=== PATIENT | male | born 1945 | race Caucasian/White ===

== ENCOUNTER → 2016-06-04 | Outpatient (REF) | payer MEDICARE | LOC: M SFHCLACO 08:56 | PROVIDERS: ATTEND Family Medicine | DX: I10 Essential (primary) hypertension (principal); Z13.220 Encounter for screening for lipoid disorders ==

== ENCOUNTER → 2016-07-19 | Outpatient (REF) | payer MEDICARE | LOC: M LABDRAW1 11:28 | PROVIDERS: ATTEND Family Medicine | DX: Z13.1 Encounter for screening for diabetes mellitus (principal); Z79.899 Other long term (current) drug therapy ==

== ENCOUNTER → 2016-07-29 | Outpatient (CLI) | payer MEDICARE ==
[~2016-07-29] VITALS: Ht 180.3 cm; Wt 112.5 kg
[~2016-07-29] MED LIST: ASPI1TAB PO; ATEN100T PO; BENA20TA7 PO; BENAZEPRIL-HCTZ PO; LIDOCAINE 2% INJ 100 MG/5 ML SDV (FOR ANES.) As Ordered ONE; NS 1,000 ML IV SCH; PROPOFOL 500 MG/50 ML VIAL As Ordered ONE; VITA-130 PO; VITMTA PO
--- NOTE | 2016-07-29 08:51 | ROOR ---
Patient Name: Fredy Fisher Procedure Date: 07/29/2016 8:27 AM Date of : 1945 Age: 71 Room: [facility] Gender: Male Note Status: Finalized Procedure: Colonoscopy Indications: Screening for colorectal malignant neoplasm Providers: Rex RICE MD Referring MD: AN GARCIA MD Requesting Provider: Medicines: Monitored Anesthesia Care Complications: No immediate complications. Procedure: Pre-Anesthesia Assessment: - The heart rate, respiratory rate, oxygen saturations, blood pressure, adequacy of pulmonary ventilation, and response to care were monitored throughout the procedure. The Colonoscope was introduced through the anus and advanced to the cecum, identified by appendiceal orifice and ileocecal valve. The colonoscopy was performed without difficulty. The patient tolerated the procedure well. The quality of the bowel preparation was good. Findings: The perianal and digital rectal examinations were normal. Two semi-sessile polyps were found in the ascending colon and ileocecal valve. The polyps were 4 to 6 mm in size. These polyps were removed with a cold snare. Resection and retrieval were complete. A 4 mm polyp was found in the sigmoid colon. The polyp was sessile. The polyp was removed with a cold snare. Resection and retrieval were complete. A few small-mouthed diverticula were found in the sigmoid colon. The exam was otherwise without abnormality on direct and retroflexion views. Impression: - Two 4 to 6 mm polyps in the ascending colon and at the ileocecal valve, removed with a cold snare. Resected and retrieved. - One 4 mm polyp in the sigmoid colon, removed with a cold snare. Resected and retrieved. - Mild diverticulosis in the sigmoid colon. - Small internal hemorrhoids. - The examination was otherwise normal on direct and retroflexion views. Recommendation: - Repeat colonoscopy in 3 years for surveillance. Rex Rice MD Rex RICE MD 07/29/2016 8:50:52 AM This report has been signed electronically. Number of Addenda: 0 Note Initiated On: 07/29/2016 8:27 AM Estimated Blood Loss: Estimated blood loss: none.
[2016-07-29 09:12] VITALS: BP 124/90
== END | disposition home or self-care (01) ==
LOC: M OPP 07:07
PROVIDERS: ATTEND Internal Medicine Gastroenterology
DX: Z12.11 Encounter for screening for malignant neoplasm of colon (principal); D12.2 Benign neoplasm of ascending colon; D12.5 Benign neoplasm of sigmoid colon; D12.0 Benign neoplasm of cecum; K57.30 Diverticulosis of large intestine without perforation or abscess without bleeding; K64.8 Other hemorrhoids; Z86.010 Personal history of colon polyps; I10 Essential (primary) hypertension; G47.30 Sleep apnea, unspecified; R06.83 Snoring; Z98.1 Arthrodesis status; Z79.82 Long term (current) use of aspirin; Z79.899 Other long term (current) drug therapy; Z80.0 Family history of malignant neoplasm of digestive organs; Z80.8 Family history of malignant neoplasm of other organs or systems

== ENCOUNTER → 2017-06-10 | Outpatient (REF) | payer MEDICARE ==
[2017-06-10 15:10] LABS: ALBUMIN 3.8 GM/DL (3.2-5.2); ALBUMIN/GLOBULIN RATIO 1.15 (1.00-1.93); ALKALINE PHOSPHATASE 65 U/L (45-117); ALT/SGPT 42 U/L (12-78); ANION GAP 6 MEQ/L (8-16); AST/SGOT 25 U/L (7-37); BILIRUBIN,TOTAL 0.3 MG/DL (0.2-1.0); BLOOD UREA NITROGEN 14 MG/DL (7-18); CALCIUM LEVEL 8.9 MG/DL (8.8-10.2); CARBON DIOXIDE LEVEL 27 MEQ/L (21-32); CHLORIDE LEVEL 111 MEQ/L (98-107); CHOLESTEROL LEVEL 92 MG/DL (<200); CHOLESTEROL RISK RATIO 2.628 (<5); CREATININE FOR GFR 0.87 MG/DL (0.70-1.30); GLOMERULAR FILTRATION RATE > 60.0 (>42); GLUCOSE, FASTING 112 MG/DL (70-100); HDL CHOLESTEROL 35 MG/DL (>40); LDL CHOLESTEROL 44.4 MG/DL (<100); NON-HDL-C 57 MG/DL; POTASSIUM SERUM 4.4 MEQ/L (3.5-5.1); SODIUM LEVEL 144 MEQ/L (136-145); TOTAL PROTEIN 7.1 GM/DL (6.4-8.2); TRIGLYCERIDES LEVEL 63 MG/DL (<150)
== END ==
LOC: M SFHCLACO 08:28
DX: E78.5 Hyperlipidemia, unspecified (principal)
CPT/HCPCS: 80053

== ENCOUNTER → 2019-01-07 | Outpatient (REF) | payer MEDICARE ==
[~2019-01-07] MED LIST changes: -ASPI1TAB PO; +ASPI81TA26 PO; -LIDOCAINE 2% INJ 100 MG/5 ML SDV (FOR ANES.) As Ordered ONE; -NS 1,000 ML IV SCH; -PROPOFOL 500 MG/50 ML VIAL As Ordered ONE; -VITA-130 PO; +VITA500T PO
[2019-01-07 16:24] LABS: BLOOD UREA NITROGEN 14 MG/DL (7-18); CALCIUM LEVEL 9.6 MG/DL (8.8-10.2); CARBON DIOXIDE LEVEL 29 MEQ/L (21-32); CHLORIDE LEVEL 104 MEQ/L (98-107); CREATININE FOR GFR 0.96 MG/DL (0.70-1.30); GLOMERULAR FILTRATION RATE > 60.0 (>42); GLUCOSE, FASTING 109 MG/DL (70-100); POTASSIUM SERUM 4.3 MEQ/L (3.5-5.1); SODIUM LEVEL 140 MEQ/L (136-145)
== END ==
LOC: M SMT 15:27
PROVIDERS: ATTEND Obstetrics & Gynecology
DX: I10 Essential (primary) hypertension (principal)

== ENCOUNTER → 2019-03-26 | Outpatient (RCR) | payer MEDICARE ==
--- NOTE | 2019-03-18 15:11 | CARECAPL ---
Assessment Account #s: Initial Assessment General Diagnoses: Stent Date of event: Mar 02, 2019 Physician: Rex Sarabia Allergies: Coded Allergies: MS - No Known Drug Allergy (Verified Allergy, Unknown, 07/26/16) Date Entered Program: Mar 18, 2019 Risk strat for cardiac event: Low Exercise Date: Mar 18, 2019 Assessment: Initial Assessment Stages of change: Preperation Exercise Prescription Plan TO EDUCATE AND BUILD ENDURANCE THROUGH MONITORED EXERCISE Modalities initiated: Treadmill (WILL ADD), Cardio-Strider (WILL ADD), Nustep (WILL ADD), Arm Aerometer (WILL ADD), Dumbells (WILL ADD), Recumbent Bike (WILL ADD) Frequency: 3 Duration (Minutes) 30 - 60 minutes total exercise a day. 15 - 20 work intervals in minutes. PRN rest intervals in minutes. Functional Capacity Goal Sustained Metabolic Equivalent of a task (MET) goal of 2.5-3.0 for 15-20 minutes. Intensity: 3-Moderate Progression (METS) Increase by: 0.5 METS every: 5 sessions TOLERATED Angina with ex: No Target Heart Rate REST + 35-40 PER BETA UNRULY THERAPY Resistance Training: Yes Weight (pounds): 2 Reps: 8-12 Hypertension: Yes Hypertension controlled with: Medication (BENAZEPRIL/HCTZ, METOPROLOL) Resting 138/80 Medications Scheduled Ascorbic Acid (Vitamin C), 500 MG PO DAILY, (Reported) Aspirin (Aspirin EC), 81 MG PO DAILY, (Reported) Atorvastatin Calcium (Atorvastatin Calcium), 40 MG PO QHS, (Reported) Benazepril/Hydrochlorothiazide (Benazepril-Hctz 20-12.5 mg Tab), 1 TAB PO QHS, (Reported) Clopidogrel Bisulfate (Plavix), 75 MG PO DAILY, (Reported) Metoprolol Tartrate (Metoprolol Tartrate), 25 MG PO BID, (Reported) Multivitamins (Thera M Plus Tablet), 1 TAB PO DAILY, (Reported) Nitroglycerin (Nitroglycerin), 0.4 MG SL ASDIRECTED, (Reported) Discontinued Medications Atenolol (Atenolol), 100 MG PO DAILY, (Reported) Discontinued Reason: Pt states not taking Benazepril/Hydrochlorothiazide (Benazepril-Hctz 20-25 mg Tab), 1 TAB PO DAILY, (Reported) Discontinued Reason: Pt states not taking Med Change: No Intervention Resistance Training: Yes Education: Self pulse (INSTRUCTED PATIENT TO TAKE OWN PULSE RATE), S/S to report (PATIENT VERBALIZES UNDERSTANDING OF IMPORTANCE TO REPORT CHEST PAIN/SOB OR OTHER PAIN), Low NA diet (PATIENT VERBALIZES HE IS TO AVOID SALT DUE TO HIS CARDIAC DISEASE), RPE Scale (DISCUSSED EFFORT SCALE FOR EACH PIECE OF EQUIPMENT, PATIENT VERBALIZES UNDERSTANDING), warm up/cool down (DISCUSSED IMPORTANCE OF WARM UP AND COOL DOWN PRIOR TO AND FOLLOWING EXERCISE, PATIENT VERBALIZES UNDERSTANDING) Education Goals Met: No Target Goals Individual exercise Rx (1) BP 140/90 or 130/80 if DM or CKD (1) Aerobic active 30+min 5 days per week (1) Nutrition Date: Mar 18, 2019 Assessment: Initial Assessment Stages of change: Preperation Lipid- med/supplement ATORVASTATIN Med Change: No Diabetes Diabetes: No Monitor Blood Sugar at home: No Medication Change: No Weight Management Weight (lbs): 245 Height (inches): 75 Waist Circumference (Inches): 43 BMI: 30.6 Special Diet: low salt, mediteranean diet, low-fat Vitamin/Supplements: Multivitamin, Vitamin C Diet Access Tool: Rate your plate Score: 54 Current Weight (pounds): 245 Intervention Kettle Cleaner Consult: No Nurse/patient discussion: Yes Dietary Goals TO CHOOSE HEART HEALTHY DIET/SMALLER PORTIONS Diet Class: Yes (WILL SEE NEW CAR SALES MANAGER WHILE IN PROGRAM) Referral to Diabetes education: No Referral to lipid clinic: No Referral to weight mangement p: No Education Eating Healthy Education Goals Met: No Target goal LDL-C<100 if triglycerides are >200 Non-HDL-C should be <130 (1) LDL-C<70 for high risk patients (4) HbA1c<7% (1) BMI<25 Waist cir<40in M/<35in F (1) Education Date: Mar 18, 2019 Assessment: Initial Assessment Learning Barriers: ready Knowledge Test Score: 10 Stages of change: Preperation Family Support: Yes Tobacco use: No Quit: never smoked Tobacco Use Smokeless tobacco: No Intervention Referral to smoking cessation: No Individual education and couns: No Tobacco Adjunct: No Education class schedule given: No Attended education classes: No Education Goals Met: No Target Goals Complete cessation of tobacco use (1). Psychosocial Date: Mar 18, 2019 Assessment: Initial Assessment Psych Test (Initial/Discharge) Tool Used: Other (PHQ-9) Score: 0 Stages of change: Preperation Intervention Physician Consult: No Physician Referral: No Med Change: No Stress Management Class: No Uses Stress Management Skills: Yes Education Education: Coping Techniques (DISCUSSED COPING MEASURES SUCH TAKING TIME FOR SELF, EXERCISE,TALKING WITH FRIENDS AND FAMILY), S/S depression (REVIEWED S/S OF DEPRESSION SUCH WITHDRAWAL, LACK OF INTEREST, LACK OF APPETITE, SECLUSION), Relaxation Techniques (DISCUSSED WAYS TO RELAX SUCH READING,HOBBIES,LISTENING TO MUSIC, EXERCISING) Education Goals Met: No Target Goal Assess presence or absence of depression using a valid screening tool (1). Maximize coping skills (2). Positive support system (2). Patient/Program Goal Preventative Medication: Yes Aspirin, Yes Clopidogrel, Yes Beta blockade, Yes Statin/OTR lipid Lowering Fall Risk Assess: Yes (NOT A FALL RISK) Provider Assessment Session Number: 1 Provider Assessment: Proceed with rehab Blane Thomas RN Mar 18, 2019 15:11
[~2019-03-26] MED LIST changes: +ATOR40TA75 PO; +BENA20TA6 PO; +METO25TA4 PO; +NITR0.4S14 SL; +PLAV1TAB2 PO
== END ==
LOC: M CR 03-18 13:01
PROVIDERS: ATTEND Internal Medicine Cardiovascular Disease
DX: Z98.61 Coronary angioplasty status (principal)

== ENCOUNTER 2019-04-07 14:20 | Outpatient (RCR) | payer MEDICARE ==
[~2019-04-07] VITALS: Ht 190.5 cm; Wt 109.6 kg
[2019-04-07 13:05] VITALS: BP 142/84
[2019-04-07 13:42] VITALS: BP 180/84
[2019-04-07 14:33] VITALS: BP 142/86
--- NOTE | 2019-04-14 13:05 | CARECAPL ---
Assessment Account #s: Discharge General Diagnoses: Stent Date of event: Mar 02, 2019 Physician: Rex Sarabia Allergies: Coded Allergies: MS - No Known Drug Allergy (Verified Allergy, Unknown, 07/26/16) Date Entered Program: Mar 18, 2019 Risk strat for cardiac event: Low Exercise Date: Apr 14, 2019 Assessment: Followup/Discharge Stages of change: Preperation Exercise Prescription Plan TO EDUCATE AND BUILD ENDURANCE THROUGH MONITORED EXERCISE PROGRAM Modalities initiated: Treadmill (METS=3.5/RPE=3), Nustep (METS=5.0/RPE=3), Arm Aerometer (METS=2.2/RPE=3), Dumbells (6#/RPE=3), Recumbent Bike (METS=11.7/RPE=3) Frequency: 3 Duration (Minutes) 30 - 60 minutes total exercise a day. 15 - 20 work intervals in minutes. PRN rest intervals in minutes. Functional Capacity Goal Sustained Metabolic Equivalent of a task (MET) goal of 5.5-6.0 for 15-20 minutes. Intensity: 3-Moderate Progression (METS) Increase by: METS every: sessions Angina with ex: No Target Heart Rate +35-40 BASED ON BETA UNRULY THERAPY Resistance Training: Yes Weight (pounds): 6 Reps: 12-15 Hypertension controlled with: Medication Resting 142/84 Peak Exercise BP 180/84 Medications Scheduled Ascorbic Acid (Vitamin C), 500 MG PO DAILY, (Reported) Aspirin (Aspirin EC), 81 MG PO DAILY, (Reported) Atorvastatin Calcium (Atorvastatin Calcium), 40 MG PO QHS, (Reported) Benazepril/Hydrochlorothiazide (Benazepril-Hctz 20-12.5 mg Tab), 1 TAB PO QHS, (Reported) Clopidogrel Bisulfate (Plavix), 75 MG PO DAILY, (Reported) Metoprolol Tartrate (Metoprolol Tartrate), 25 MG PO BID, (Reported) Multivitamins (Thera M Plus Tablet), 1 TAB PO DAILY, (Reported) Nitroglycerin (Nitroglycerin), 0.4 MG SL ASDIRECTED, (Reported) Current BP 142/86 Med Change: No Intervention Resistance Training: Yes Education: Self pulse (INSTRUCTED PATIENT ON TAKING HIS OWN PULSE), Ex safety (REVIEWED SAFE EXERCISING SUCH WARM UP/COOL DOWN, STAYING HYDRATED), S/S to report (PATIENT VERBALIZES UNDERSTANDING TO REPORT CHEST PAIN/PRESSURE,SOB,N/V OR ANY OTHER PAIN DURING EXERCISE SESSION), RPE Scale (PATIENT DEMONSTRATES INDEPENDENTLY FOLLOWING EACH PIECE OF EQUIPMENT ), Equipment orientation (ORIENTED TO EACH PIECE OF EQUIPMENT USED), warm up/cool down (PATIENT DEMONSTRATES WARM UP AND COOL DOWN WITH EACH EXERCISE SESSION), Physical Active (PATIENT VERBALIZES UNDERSTANDING THAT HE SHOULD CONTINUE EXERCISE PROGRAM AT HOME ONCE HE HAS COMPLETED CARDIAC REHAB) Education Goals Met: No Target Goals Individual exercise Rx (1) BP 140/90 or 130/80 if DM or CKD (1) Aerobic active 30+min 5 days per week (1) Nutrition Date: Apr 14, 2019 Assessment: Followup/Discharge Lipid- med/supplement ATORVASTATIN Med Change: No Diabetes Diabetes: No Monitor Blood Sugar at home: No Medication Change: No Weight Management Weight (lbs): 245 Special Diet: low salt, mediteranean diet, low-fat Vitamin/Supplements: Multivitamin, Vitamin C Current Weight (pounds): 245 Intervention Water Tender Consult: No Nurse/patient discussion: Yes Dietary Goals TO MAKE HEART HEALTHY CHOICES/SMALLER PORTIONS Diet Class: No (DID NOT SEE DISEASE AND INSECT CONTROL BOSS WHILE IN PROGRAM) Referral to Diabetes education: No Referral to lipid clinic: No Referral to weight mangement p: No Education Eating Healthy Education Goals Met: No Target goal LDL-C<100 if triglycerides are >200 Non-HDL-C should be <130 (1) LDL-C<70 for high risk patients (4) HbA1c<7% (1) BMI<25 Waist cir<40in M/<35in F (1) Education Date: Apr 14, 2019 Assessment: Followup/Discharge Learning Barriers: ready Stages of change: Preperation Family Support: Yes Tobacco use: No Quit: never smoked Tobacco Use Smokeless tobacco: No Intervention Referral to smoking cessation: No Individual education and couns: No Tobacco Adjunct: No Education class schedule given: No Attended education classes: No Education: CAD (PATIENT STATES THAT HAVING ELEVATED CHOLERSTEROL MAY CLOG HIS ARTERIES CAUSING CAD), Risk factors (PATIENT STATES THAT BEING OVER WEIGHT, DIABETES AND HIGH CHOLESTEROL ARE RISK FACTORS FOR CAD) Education Goals Met: No Target Goals Complete cessation of tobacco use (1). Psychosocial Date: Apr 14, 2019 Assessment: Followup/Discharge Stages of change: Preperation Intervention Physician Consult: No Physician Referral: No Med Change: No Stress Management Class: No Uses Stress Management Skills: Yes Education Education: Coping Techniques (SEE EDUCATION ON PRIOR ITP'S) Education Goals Met: No (PATIENT AND ARE TRAVELING TO [place] TO VISIT FAMILY FOR THE REST OF THE WINTER, GAVE PATIENT INFORMATION REGARDING OUR CARDIAC REHAB MEET PROGRAM IF HE IS INTERESTED WHEN HE RETURNS FROM [place]) Target Goal Assess presence or absence of depression using a valid screening tool (1). Maximize coping skills (2). Positive support system (2). Patient/Program Goal Preventative Medication: Yes Aspirin, Yes Clopidogrel, Yes Beta blockade, Yes Statin/OTR lipid Lowering Fall Risk Assess: Yes (PATIENT IS NOT A FALL RISK) Provider Assessment Session Number: 6 Blane Thomas RN Apr 14, 2019 13:05
== END 2019-04-24 ==
LOC: M CR 14:20
PROVIDERS: ATTEND Internal Medicine Cardiovascular Disease
DX: Z98.61 Coronary angioplasty status (principal)

== ENCOUNTER → 2019-07-26 | Outpatient (CLI) | payer MEDICARE ==
[~2019-07-26] MED LIST changes: +VITA-243 PO; -VITA500T PO
--- NOTE | 2019-07-26 14:17 | REPPI ---
RIGHT KNEE FIVE VIEWS: Five views of the right knee performed. No acute fracture or dislocation is seen. There is mild medial joint space narrowing and subchondral sclerosis. There is mild lateral patellofemoral joint space narrowing and subchondral sclerosis. There is mild spurring of the medial and lateral patellar facets. There is probably a small joint effusion. IMPRESSION: Mild degenerative changes. Small joint effusion. Electronically Signed by Fredy Cam MD 07/27/2019 01:07 P
== END ==
LOC: M PLAIMG 12:33
PROVIDERS: ATTEND Family Medicine
DX: M17.11 Unilateral primary osteoarthritis, right knee (principal); M25.561 Pain in right knee

== ENCOUNTER → 2019-09-06 | Outpatient (CLI) | payer MEDICARE ==
[2019-09-06 14:28] LABS: HEMOGLOBIN 14.5 g/dl (13.5-17.5); MEAN CORPUSCULAR HEMOGLOBIN 31.9 pg (27.0-33.0); MEAN CORPUSCULAR HGB CONC 33.7 g/dl (32.0-36.5); MEAN CORPUSCULAR VOLUME 94.7 fl (80.0-96.0); PLATELET COUNT, AUTOMATED 197 10^3/uL (150-450); RED BLOOD COUNT 4.54 10^6/uL (4.30-6.10); WHITE BLOOD COUNT 5.4 10^3/uL (4.0-10.0)
[2019-09-06 14:34] LABS: CHOLESTEROL RISK RATIO 1.846 (<5)
[2019-09-06 15:10] LABS: ALBUMIN 3.9 GM/DL (3.2-5.2); ALT/SGPT 41 U/L (12-78); BILIRUBIN,TOTAL 0.7 MG/DL (0.2-1.0); BLOOD UREA NITROGEN 10 MG/DL (7-18); CALCIUM LEVEL 9.5 MG/DL (8.8-10.2); CARBON DIOXIDE LEVEL 26 MEQ/L (21-32); CHLORIDE LEVEL 107 MEQ/L (98-107); CHOLESTEROL LEVEL 72 MG/DL (<200); CHOLESTEROL RISK RATIO 1.894 (<5); GLOMERULAR FILTRATION RATE > 60.0 (>42); GLUCOSE, FASTING 102 MG/DL (70-100); HDL CHOLESTEROL 38 MG/DL (>40); LDL CHOLESTEROL 21 MG/DL (<100); NON-HDL-C 34 MG/DL; POTASSIUM SERUM 4.1 MEQ/L (3.5-5.1); SODIUM LEVEL 142 MEQ/L (136-145); TOTAL PROTEIN 7.1 GM/DL (6.4-8.2); TRIGLYCERIDES LEVEL 67 MG/DL (<150)
== END ==
LOC: M PLALAB 09:28
PROVIDERS: ATTEND Family Medicine
DX: I25.10 Atherosclerotic heart disease of native coronary artery without angina pectoris (principal); I10 Essential (primary) hypertension; E78.5 Hyperlipidemia, unspecified

== ENCOUNTER → 2019-09-06 | Outpatient (CLI) | payer MEDICARE ==
[2019-09-06 14:59] LABS: BLOOD UREA NITROGEN 10 MG/DL (7-18); CALCIUM LEVEL 9.4 MG/DL (8.8-10.2); CARBON DIOXIDE LEVEL 26 MEQ/L (21-32); CHLORIDE LEVEL 105 MEQ/L (98-107); CHOLESTEROL LEVEL 72 MG/DL (<200); CREATININE FOR GFR 0.82 MG/DL (0.70-1.30); GLOMERULAR FILTRATION RATE > 60.0 (>42); GLUCOSE, FASTING 102 MG/DL (70-100); HDL CHOLESTEROL 40 MG/DL (>40); LDL CHOLESTEROL 20 MG/DL (<100); NON-HDL-C 32 MG/DL; SODIUM LEVEL 140 MEQ/L (136-145); TRIGLYCERIDES LEVEL 61 MG/DL (<150)
[2019-09-06 17:19] LABS: HEMOGLOBIN A1c 6.3 %
== END ==
LOC: M PLALAB 09:26
PROVIDERS: ATTEND Obstetrics & Gynecology
DX: Z13.1 Encounter for screening for diabetes mellitus (principal); Z13.220 Encounter for screening for lipoid disorders; I10 Essential (primary) hypertension

== ENCOUNTER → 2020-02-10 | Outpatient (CLI) | payer MEDICARE ==
[~2020-02-10] MED LIST changes: +ACET-908 PO; +D31000TA2 PO
== END ==
LOC: M LABSMTC 13:30
PROVIDERS: ATTEND Anesthesiology
DX: Z01.812 Encounter for preprocedural laboratory examination (principal); Z20.828 Contact with and (suspected) exposure to other viral communicable diseases

== ENCOUNTER 2020-02-15 06:16 | Day surgery (SDC) | payer MEDICARE ==
[~2020-02-15] VITALS: Ht 185.4 cm; Wt 103.4 kg
[2020-02-15] MEDS ORDERED: LR 1,000 ML IV ONE (07:00)
[2020-02-15] MEDS ORDERED: BUPIVACAINE HCL 0.5% 30 ML VIAL As Ordered ONE (07:10)
[2020-02-15] MEDS ORDERED: propofoL 200 MG/20 ML VIAL As Ordered ONE (07:22)
[2020-02-15] MEDS ORDERED: dexameTHASONE 4 MG/ML 1ML VIAL (J1100 PER 1MG) As Ordered ONE (07:22)
[2020-02-15] MEDS ORDERED: MIDAZOLAM INJ 2MG/2ML VIAL (J2250 PER 1MG) As Ordered ONE (07:22)
[2020-02-15] MEDS ORDERED: fentaNYL 100 MCG/2 ML INJECTION (J3010) As Ordered ONE (07:22)
[2020-02-15] MEDS ORDERED: LIDOCAINE 2% 100MG/5ML SDV (FOR ANES.) As Ordered ONE (07:22)
[2020-02-15] MEDS ORDERED: ePHEDrine SULFATE 25 MG/5 ML(5MG/ML) SYRINGE As Ordered ONE (07:43)
[2020-02-15] MEDS ORDERED: ACETAMINOPHEN 1000MG 100ML IV BTL (OFIRMEV) (J0131 PER 10MG) As Ordered ONE (08:12)
[2020-02-15] MEDS ORDERED: ONDANSETRON 4MG/2ML VIAL As Ordered ONE (08:34)
[2020-02-15] MEDS ORDERED: LR 1,000 ML IV SCH ×2 (09:00→09:15)
[2020-02-15] MEDS ORDERED: ONDANSETRON 4MG/2ML VIAL IV PRN (09:00)
[2020-02-15] MEDS ORDERED: MEPERIDINE INJ 25 MG/ML VIAL (J2175) IV PRN (09:00)
[2020-02-15] MEDS ORDERED: fentaNYL 100 MCG/2 ML INJECTION (J3010) IV PRN (09:00)
[2020-02-15] MEDS ORDERED: METOCLOPRAMIDE INJ 10MG/2ML VIAL (J2765 PER 1) IV PRN (09:00)
[2020-02-15] MEDS ORDERED: oxyCODONE 5MG TAB PO PRN (09:00)
--- NOTE | 2020-02-15 09:03 | RO ---
OPERATIVE NOTE DATE OF OPERATION: 02/15/2020 PREOPERATIVE DIAGNOSES: 1. Right knee medial meniscus tear. 2. Right knee osteoarthritis. POSTOPERATIVE DIAGNOSES: 1. Right knee medial and lateral meniscus tear. 2. Right knee osteoarthritis. 3. Right knee synovitis. PROCEDURES: 1. Right knee arthroscopy with partial medial and lateral meniscectomy. 2. Right knee arthroscopic chondroplasty and synovectomy. SURGEON: Nasir Neal M.D. PRODUCT SAFETY AND STANDARDS ENGINEER: None. ANESTHESIA: General. IV FLUIDS: Lactated ringers. ESTIMATED BLOOD LOSS: 10 mL. CLOSURE: Nylon. DESCRIPTION OF PROCEDURE: The patient was identified in the preoperative holding area where the right knee was marked. He was cleared by his pelt inspector. He was brought to the operating room and placed supine on a well-padded OR table. General anesthesia induced. Examination under anesthesia revealed range of motion from 0 to 135 degrees. He did have some medial compartment instability with valgus stress testing at 30 degrees and grade 1A Franky. A well-padded tourniquet was applied to the right thigh and then, the right leg was prepped and draped in the normal sterile fashion with ChloraPrep. No indication for IV antibiotics. Prior to incision, a time-out was performed per hospital protocol. Following the time-out, the right leg was exsanguinated with an Esmarch bandage and the tourniquet inflated to 250 mmHg. Standard anterolateral portals localized with a spine needle and incision made with an 11-blade. A 30-degree arthroscope was introduced into the joint and diagnostic arthroscopy carried out. The patient had a few areas of grade 2 chondromalacia in the patella just lateral to the mid plane, but otherwise was grade 1. The trochlea on the other hand had grade 3 chondral changes diffusely. There were several unstable flaps of articular cartilage. There was significant diffuse synovitis with hyperemia. No loose bodies seen. Medial and lateral gutters were inspected with no loose bodies. The medial compartment was entered where there was varying degrees of grade 2 and 3 chondromalacia in the medial femoral condyle; primarily grade 1 and 2 in the medial tibial plateau. There was a complex macerated tear of the medial meniscus extending from the root up to the anterior horn. There was a meniscal fragment based at the junction of the anterior horn and body that had torn and flipped up superiorly. The ACL was inspected and appeared intact. The leg was brought to the [id number] position where there was some free edge tearing of the lateral meniscus and grade 1 chondromalacia. An anteromedial portal was created under direct visualization and on probing the medial meniscus, there was a large unstable tear. In addition to the previously mentioned displaced fragment, there was a separate fragment attached to the root that had flipped superiorly back into the posterior compartment. That piece had walled itself off into a ball. So that fragment was brought into the joint with a probe and then using a biter, I was able to remove the stalk and then remove it with the pituitary. The shaver was then used to remove the free edge fraying of the medial meniscus. The probe was then used to reduce the other flap tear and then, the biters were used to trim that back to a stable rim. Then, arthroscopy ports were switched to get a better angle at the anterior aspect of the tear. Shaver was used to remove all meniscal fragments. So at the completion of the partial meniscectomy, there was an intact peripheral rim. I also performed a chondroplasty of the medial femoral condyle. The ACL was probed and found to be under good tension. The leg was brought to the [id number] position, and the shaver was used to perform a partial lateral meniscectomy removing about 10% of the lateral meniscus at the most. The lateral compartment overall was in good shape. The knee was then brought into full extension and chondroplasty was performed to the patella and trochlea. Radiofrequency cautery was then used to perform a synovectomy in the area of a typical medial plica. The [place] wand was used since there was significant hyperemia and to avoid a hemarthrosis postoperatively. The tourniquet was let down and there was excellent hemostasis. The knee was irrigated and drained. Portals were closed with nylon suture. I then injected a total of 30 mL 0.5% Marcaine with epinephrine both at the portals and into the joint. A bulky sterile dressing was applied. Drapes were taken down. All counts correct x2. Complications none. He was extubated and transferred to the PACU in stable condition. POSTOPERATIVE COURSE: The patient will take aspirin 81 mg p.o. b.i.d. for 14 days for DVT prophylaxis and then he will go back to once a day, which his preop routine. He will resume Plavix for cardiology recommendations. Weightbearing as tolerated.
[2020-02-15 10:12] VITALS: BP 120/66
== END 2020-02-15 10:13 | disposition home or self-care (01) ==
LOC: M SDC 06:16
PROVIDERS: ATTEND Orthopaedic Surgery
DX: M23.231 Derangement of other medial meniscus due to old tear or injury, right knee (principal); M16.11 Unilateral primary osteoarthritis, right hip; M65.161 Other infective (teno)synovitis, right knee; E66.09 Other obesity due to excess calories; E78.00 Pure hypercholesterolemia, unspecified; I10 Essential (primary) hypertension; I25.10 Atherosclerotic heart disease of native coronary artery without angina pectoris; M10.9 Gout, unspecified; T88.59XD Other complications of anesthesia, subsequent encounter; Z79.01 Long term (current) use of anticoagulants; Z79.82 Long term (current) use of aspirin; Z79.899 Other long term (current) drug therapy; Z91.030 Bee allergy status; Z91.09 Other allergy status, other than to drugs and biological substances; Z95.5 Presence of coronary angioplasty implant and graft; Z96.1 Presence of intraocular lens; Z96.652 Presence of left artificial knee joint; Z98.41 Cataract extraction status, right eye; Z98.42 Cataract extraction status, left eye
CPT/HCPCS: 29880; J0131; J1100; J2250; J2405; J3010

== ENCOUNTER → 2020-06-08 | Outpatient (CLI) | payer MEDICARE ==
[~2020-06-08] MED LIST changes: -ACET-908 PO; +ACET-910 PO
== END ==
LOC: M LABSMTC 10:51
PROVIDERS: ATTEND Anesthesiology
DX: Z01.812 Encounter for preprocedural laboratory examination (principal); Z20.822 Contact with and (suspected) exposure to COVID-19

== ENCOUNTER 2020-06-13 10:09 | Day surgery (SDC) | payer MEDICARE ==
[~2020-06-13] VITALS: Ht 185.4 cm; Wt 102.7 kg
[~2020-06-13 10:09] MED LIST changes: +LIDOCAINE 2% 100MG/5ML SDV (FOR ANES.) As Ordered ONE; +NS 1,000 ML IV ONE; +propofoL 200 MG/20 ML VIAL As Ordered ONE
[2020-06-13] MEDS ORDERED: propofoL 200 MG/20 ML VIAL As Ordered ONE (12:45)
--- NOTE | 2020-06-13 12:58 | ROOR ---
Patient Name: Fredy Fisher Procedure Date: 06/13/2020 12:32 PM Date of : 1945 Age: 75 Room: [facility] Gender: Male Note Status: Finalized Procedure: Colonoscopy Indications: High risk colon cancer surveillance: Personal history of colonic polyps Providers: Rex RICE MD Referring MD: AN GARCIA MD Requesting Provider: Medicines: Monitored Anesthesia Care Complications: No immediate complications. Procedure: Pre-Anesthesia Assessment: - The heart rate, respiratory rate, oxygen saturations, blood pressure, adequacy of pulmonary ventilation, and response to care were monitored throughout the procedure. The Colonoscope was introduced through the anus and advanced to the terminal ileum, with identification of the appendiceal orifice and IC valve. The colonoscopy was performed without difficulty. The patient tolerated the procedure well. The quality of the bowel preparation was good. Findings: The perianal and digital rectal examinations were normal. A 5 mm polyp was found in the splenic flexure. The polyp was sessile. The polyp was removed with a cold snare. Resection and retrieval were complete. Mild sigmoid diverticulosis and small internal hemorrhoids. The exam was otherwise without abnormality on direct and retroflexion views. Impression: - One 5 mm polyp at the splenic flexure, removed with a cold snare. Resected and retrieved. - Mild sigmoid diverticulosis and small internal hemorrhoids. - The examination was otherwise normal on direct and retroflexion views. Recommendation: - Repeat colonoscopy in 5 years for surveillance. Procedure Code(s): --- Professional --- 11311, Colonoscopy, flexible; with removal of tumor(s), polyp(s), or other lesion(s) by snare technique Diagnosis Code(s): --- Professional --- K63.5, Polyp of colon Z86.010, Personal history of colonic polyps CPT copyright 2019 [employer]. All rights reserved. The codes documented in this report are preliminary and upon weatherization field technician review may be revised to meet current compliance requirements. Rex Rice MD Rex RICE MD 06/13/2020 12:57:50 PM Electronically signed by Rex RICE MD Number of Addenda: 0 Note Initiated On: 06/13/2020 12:32 PM Estimated Blood Loss: Estimated blood loss: none.
[2020-06-13 13:20] VITALS: BP 140/69
== END 2020-06-13 13:28 | disposition home or self-care (01) ==
LOC: M OPP 10:09
PROVIDERS: ATTEND Internal Medicine Gastroenterology
DX: Z12.11 Encounter for screening for malignant neoplasm of colon (principal); Z86.010 Personal history of colon polyps; D12.3 Benign neoplasm of transverse colon; K64.8 Other hemorrhoids; K57.30 Diverticulosis of large intestine without perforation or abscess without bleeding; Z95.5 Presence of coronary angioplasty implant and graft; Z79.82 Long term (current) use of aspirin; Z79.899 Other long term (current) drug therapy; Z91.030 Bee allergy status

== ENCOUNTER → 2020-08-10 | Outpatient (REF) | payer MEDICARE ==
[~2020-08-10] MED LIST changes: -LIDOCAINE 2% 100MG/5ML SDV (FOR ANES.) As Ordered ONE; -NS 1,000 ML IV ONE; -propofoL 200 MG/20 ML VIAL As Ordered ONE
[2020-08-10 11:03] LABS: HEMOGLOBIN A1c 5.8 %
[2020-08-10 11:13] LABS: BLOOD UREA NITROGEN 14 MG/DL (7-18); CALCIUM LEVEL 9.5 MG/DL (8.8-10.2); CARBON DIOXIDE LEVEL 32 MEQ/L (21-32); CHLORIDE LEVEL 105 MEQ/L (98-107); CREATININE FOR GFR 0.84 MG/DL (0.70-1.30); GLOMERULAR FILTRATION RATE > 60.0 (>42); GLUCOSE, FASTING 122 MG/DL (70-100); POTASSIUM SERUM 4.4 MEQ/L (3.5-5.1); SODIUM LEVEL 140 MEQ/L (136-145)
[2020-08-11 15:38] LABS: CHOLESTEROL LEVEL 71 MG/DL (<200); HDL CHOLESTEROL 42 MG/DL (>40); LDL CHOLESTEROL 17 MG/DL (<100); NON-HDL-C 29 MG/DL; TRIGLYCERIDES LEVEL 62 MG/DL (<150)
== END ==
LOC: M PLALAB 08:52
PROVIDERS: ATTEND Family Medicine
DX: I10 Essential (primary) hypertension (principal); R73.02 Impaired glucose tolerance (oral)

== ENCOUNTER → 2021-10-11 | Outpatient (CLI) | payer MEDICARE ==
[~2021-10-11] MED LIST changes: -D31000TA2 PO; +VITA100093 PO
[2021-10-11 13:55] LABS: ALT/SGPT 42 U/L (12-78); BILIRUBIN,TOTAL 0.6 MG/DL (0.2-1.0); BLOOD UREA NITROGEN 14 MG/DL (7-18); CALCIUM LEVEL 9.4 MG/DL (8.8-10.2); CARBON DIOXIDE LEVEL 28 MEQ/L (21-32); CHLORIDE LEVEL 107 MEQ/L (98-107); CHOLESTEROL LEVEL 63 MG/DL (<200); CHOLESTEROL RISK RATIO 1.431 (<5); CREATININE FOR GFR 0.73 MG/DL (0.70-1.30); GLOMERULAR FILTRATION RATE > 60.0 (>42); GLUCOSE, FASTING 112 MG/DL (70-100); HDL CHOLESTEROL 44 MG/DL (>40); LDL CHOLESTEROL 11 MG/DL (<100); NON-HDL-C 19 MG/DL; SODIUM LEVEL 138 MEQ/L (136-145); TRIGLYCERIDES LEVEL 42 MG/DL (<150)
== END ==
LOC: M PLALAB 09:39
PROVIDERS: ATTEND Family Medicine
DX: Z13.1 Encounter for screening for diabetes mellitus (principal); I25.10 Atherosclerotic heart disease of native coronary artery without angina pectoris; E78.5 Hyperlipidemia, unspecified; I10 Essential (primary) hypertension

== ENCOUNTER → 2023-01-27 | Outpatient (REF) | payer MEDICARE ==
[~2023-01-27] MED LIST changes: +CLOP75TA99 PO; -PLAV1TAB2 PO
[2023-01-27 15:10] LABS: ALKALINE PHOSPHATASE 77 U/L (46-116); ALT/SGPT 51 U/L (7.0-40); AST/SGOT 28 U/L (<34); BILIRUBIN,TOTAL 0.6 MG/DL (0.3-1.2); BLOOD UREA NITROGEN 13 MG/DL (9-23); CALCIUM LEVEL 9.7 MG/DL (8.3-10.6); CARBON DIOXIDE LEVEL 28 MMOL/L (20-31); CHLORIDE LEVEL 105 MMOL/L (98-107); CHOLESTEROL LEVEL 81 MG/DL (<200); CREATININE FOR GFR 0.82 MG/DL (0.70-1.30); GLOMERULAR FILTRATION RATE > 60.0 (>42); GLUCOSE, FASTING 123 MG/DL (74-106); POTASSIUM SERUM 4.3 MMOL/L (3.5-5.1); SODIUM LEVEL 141 MMOL/L (136-145); TOTAL PROTEIN 6.9 G/DL (5.7-8.2); TRIGLYCERIDES LEVEL 62 MG/DL (<150)
[2023-01-27 15:44] LABS: HEMOGLOBIN A1c 5.8 % (4.0-6.0)
[2023-01-27 16:36] LABS: HDL CHOLESTEROL 42.6 MG/DL (>40); NON-HDL-C 38.4 MG/DL
== END ==
LOC: M SFHCADAM 09:30
PROVIDERS: ATTEND Family Medicine
DX: I10 Essential (primary) hypertension (principal); R73.01 Impaired fasting glucose; E78.5 Hyperlipidemia, unspecified; I25.10 Atherosclerotic heart disease of native coronary artery without angina pectoris; Z13.1 Encounter for screening for diabetes mellitus

== ENCOUNTER → 2023-06-12 | Outpatient (CLI) | payer MEDICARE | LOC: M SOG 14:30 | PROVIDERS: ATTEND Physician Assistant | DX: M25.531 Pain in right wrist (principal); M18.11 Unilateral primary osteoarthritis of first carpometacarpal joint, right hand ==

== ENCOUNTER → 2024-02-02 | Outpatient (CLI) | payer MEDICARE ==
[2024-02-02 11:13] LABS: ALBUMIN 3.7 G/DL (3.2-5.2); ALKALINE PHOSPHATASE 80 U/L (40-129); ALT/SGPT 33 U/L (7.0-40); AST/SGOT 20 U/L (<34); BILIRUBIN,TOTAL 0.6 MG/DL (0.3-1.2); BLOOD UREA NITROGEN 13 MG/DL (9-23); CALCIUM LEVEL 9.6 MG/DL (8.3-10.6); CARBON DIOXIDE LEVEL 30 MMOL/L (20-31); CHLORIDE LEVEL 105 MMOL/L (98-107); CHOLESTEROL LEVEL 74 MG/DL (<200); CHOLESTEROL RISK RATIO 1.92 (<5); CREATININE FOR GFR 0.85 MG/DL (0.70-1.30); GLOMERULAR FILTRATION RATE > 60.0 (>42); GLUCOSE, FASTING 117 MG/DL (74-106); HDL CHOLESTEROL 38.5 MG/DL (>40); LDL CHOLESTEROL 26.7 MG/DL (<100); NON-HDL-C 35.5 MG/DL; POTASSIUM SERUM 4.1 MMOL/L (3.5-5.1); SODIUM LEVEL 141 MMOL/L (136-145); TOTAL PROTEIN 7.2 G/DL (5.7-8.2); TRIGLYCERIDES LEVEL 44 MG/DL (<150)
[2024-02-02 11:27] LABS: HEMOGLOBIN A1c 5.9 % (4.0-6.0)
== END ==
LOC: M PLALAB 08:43
PROVIDERS: ATTEND Family Medicine
DX: I25.10 Atherosclerotic heart disease of native coronary artery without angina pectoris (principal); E78.5 Hyperlipidemia, unspecified; R73.01 Impaired fasting glucose

== ENCOUNTER → 2024-12-09 | Outpatient (CLI) | payer MEDICARE ==
[2024-12-09 15:21] LABS: PLATELET COUNT, AUTOMATED 196 10^3/uL (150-450)
[2024-12-09 15:33] LABS: FREE T4 1.16 NG/DL (0.89-1.76)
[2024-12-09 15:34] LABS: ESTIMATED AVERAGE GLUCOSE 126.0 MG/DL (60-110)
[2024-12-09 15:54] LABS: ALT/SGPT 36 U/L (7.0-40); AST/SGOT 27 U/L (<34); CALCIUM LEVEL 9.9 MG/DL (8.3-10.6); CARBON DIOXIDE LEVEL 29 MMOL/L (20-31); CHLORIDE LEVEL 103 MMOL/L (98-107); CHOLESTEROL LEVEL 86 MG/DL (<200); CHOLESTEROL RISK RATIO 1.90 (<5); CREATININE FOR GFR 0.81 MG/DL (0.70-1.30); GLOMERULAR FILTRATION RATE > 90.0 (>42); LDL CHOLESTEROL 29.7 MG/DL (<100); NON-HDL-C 40.9 MG/DL; POTASSIUM SERUM 4.4 MMOL/L (3.5-5.1); SODIUM LEVEL 143 MMOL/L (136-145); TRIGLYCERIDES LEVEL 56 MG/DL (<150)
== END ==
LOC: M PLALAB 11:57
DX: I25.10 Atherosclerotic heart disease of native coronary artery without angina pectoris (principal); I10 Essential (primary) hypertension; R73.01 Impaired fasting glucose; E78.5 Hyperlipidemia, unspecified